=== PATIENT | female | born 1985 | race Hispanic/Latino ===

== ENCOUNTER 2018-10-20 14:24 | Observation (INO) | payer SELFPAY ==
[~2018-10-20] VITALS: Ht 152.4 cm; Wt 81.6 kg
[2018-10-20] MEDS ORDERED: SODIUM CHLORIDE 0.9% 1000ML 1,000 ML IV ONE (15:13)
[2018-10-20 15:19] LABS: BASOPHILS % (AUTO) 0.4 % (0.0-5.0); HEMATOCRIT 39.4 % (36-48); MEAN CORPUSCULAR HEMOGLOBIN 30.4 pg (27.0-33.0); MEAN CORPUSCULAR HGB CONC 34.3 g/dL (32.0-36.0); MEAN CORPUSCULAR VOLUME 88.6 fL (79-99); MONOCYTES % (AUTO) 5.9 % (3.0-13.0); NEUTROPHILS % (AUTO) 75.7 % (40.0-77.0); NUCLEATED RED BLOOD CELLS 0.1 % (0.0-0.19); PLATELET COUNT (AUTO) 244 K/uL (130-400); RED BLOOD CELL COUNT(AUTO) 4.44 MIL/uL (4.00-5.50); RED CELL DISTRIBUTION WIDTH 12.7 % (11.0-15.5); WHITE BLOOD COUNT (AUTO) 11.8 K/uL (4.8-10.8)
[2018-10-20 15:27] LABS: CREATININE 0.6 mg/dL (0.5-1.5); POTASSIUM 3.3 mmol/L (3.5-5.1)
[2018-10-20 15:32] LABS: ALBUMIN 3.8 g/dL (3.5-5.0); BILIRUBIN,TOTAL 0.4 mg/dL (0.2-1.0)
[2018-10-20] MEDS ORDERED: CLOPIDOGREL BISULFATE 300 MG TAB ONE (18:54)
[2018-10-20] MEDS ORDERED: ONDANSETRON HCL 4 MG/2 ML VIAL IV PRN (19:30)
[2018-10-20] MEDS ORDERED: ACETAMINOPHEN 325 MG TAB PO PRN (19:30)
[2018-10-20 23:52] LABS: APPEARANCE,URINE Clear (CLEAR); BILIRUBIN,URINE Negative (NEGATIVE); COLOR,URINE Yellow (YELLOW); GLUCOSE, URINE (UA) Negative (NEGATIVE); KETONES,URINE Trace mg/dL (NEGATIVE); LEUKOCYTE ESTERASE ,URINE Trace (NEGATIVE); NITRATE,URINE Negative (NEGATIVE); OCCULT BLOOD,URINE Negative (NEGATIVE); PH,URINE 6.5 (5.0-8.0); PROTEIN,URINE Negative (NEGATIVE)
[2018-10-20] MEDS: METOPROLOL TARTRATE 25 MG TAB PO SCH (23:56)
[2018-10-20] MEDS: FAMOTIDINE/PF 20 MG/2 ML VIAL IV SCH (23:57)
[2018-10-21] LABS: AMPHET/METH SCREEN,URINE NEGATIVE (NEGATIVE); BARBITURATE SCREEN, URINE NEGATIVE (NEGATIVE); BENZODIAZEPINES SCREEN,URINE NEGATIVE (NEGATIVE); CANNABINOID SCREEN,URINE NEGATIVE (NEGATIVE); COCAINE SCREEN,URINE NEGATIVE (NEGATIVE); OPIATE SCREEN,URINE NEGATIVE (NEGATIVE); PHENCYCLIDINE SCREEN,URINE NEGATIVE (NEGATIVE)
[2018-10-21 00:02] LABS: HCG,QUAL RESULT NEGATIVE (NEGATIVE)
[2018-10-21 00:03] LABS: BACTERIA,URINE None Seen /HPF (None Seen); MUCUS,URINE Rare LPF (None Seen); RBC,URINE None Seen /HPF (0-1); SQUAMOUS EPITHELIAL CELL,UR Moderate /HPF (0-2); WBC,URINE None Seen /HPF (0-1)
[2018-10-21 00:16] VITALS: BP 133/84
[2018-10-21 04:14] LABS: BASOPHILS % (AUTO) 0.7 % (0.0-5.0); EOSINOPHILS % (AUTO) 2.6 % (0.0-8.0); HEMATOCRIT 37.8 % (36-48); LYMPHOCYTES % (AUTO) 24.5 % (21.0-51.0); MEAN CORPUSCULAR HEMOGLOBIN 30.9 pg (27.0-33.0); MEAN CORPUSCULAR HGB CONC 34.4 g/dL (32.0-36.0); MEAN CORPUSCULAR VOLUME 89.6 fL (79-99); MONOCYTES % (AUTO) 7.3 % (3.0-13.0); NEUTROPHILS % (AUTO) 64.9 % (40.0-77.0); PLATELET COUNT (AUTO) 245 K/uL (130-400); RED BLOOD CELL COUNT(AUTO) 4.21 MIL/uL (4.00-5.50); RED CELL DISTRIBUTION WIDTH 12.5 % (11.0-15.5); WHITE BLOOD COUNT (AUTO) 10.2 K/uL (4.8-10.8)
[2018-10-21 04:15] VITALS: BP 119/82
[2018-10-21 04:22] LABS: HEMOGLOBIN A1C 5.5 % (4.0-6.0)
[2018-10-21 04:26] LABS: INR 0.96 (0.85-1.15); PARTIAL THROMBOPLASTIN TIME 30.8 SEC (26.3-35.5); PROTHROMBIN TIME 10.1 SEC (9.6-11.6)
[2018-10-21 04:39] LABS: ALBUMIN 3.1 g/dL (3.5-5.0); BILIRUBIN,TOTAL 0.2 mg/dL (0.2-1.0); CREATININE 0.8 mg/dL (0.5-1.5); POTASSIUM 3.5 mmol/L (3.5-5.1); TOTAL PROTEIN, SERUM 6.9 g/dL (6.0-8.3)
[2018-10-21] MEDS ORDERED: GADODIAMIDE 10 MMOL/20 ML ML IV ONE (07:47)
[2018-10-21 08:24] VITALS: BP 112/67
[2018-10-21] MEDS ORDERED: ASPIRIN 325 MG TABLET PO SCH (09:00)
--- NOTE | 2018-10-21 09:10 | NUR ---
DYSPHAGIA EVAL COMPLETE. SWALLOW FUNCTION AND EFFICIENCY ARE WFL. NO S/S OF ASPIRATION OBSERVED. PATIENT INFORMATION: Pt IS 33 Y.O. FEMALE REFERRED FOR DYSPHAGIA EVALUATION SECONDARY TO DX OF TIA. Pt REPORTED NO DIFFICULTY WITH SWALLOWING, SPEECH, OR LANGUAGE AT ONSET OF TIA SYMPTOMS OR ANY TIME AFTER THAT. Pt WAS AT WORK WHEN SHE BEGAN TO FEEL DIZZY AND HAD DOUBLE VISION. PMHX SIGNIFICANT FOR HTN AND X4. EVALUATION: SWALLOW FUNCTION AND EFFICIENCY ARE WFL. NO S/S OF ASPIRATION OBSERVED. Pt HAS ADEQUATE ORAL STRENGTH AND ROM, TIMELY PHARYNGEAL RESPONSE, GOOD LARYNGEAL ELEVATION/EXCURSION, AND APPROPRIATE AIRWAY PROTECTION. SPEECH, LANGUAGE, AND COGNITION ARE WFL. Pt ABLE TO ANSWER QUESTIONS APPROPRIATELY, EXPRESS WANTS/NEEDS, AND IS ORIENTED X3. RECOMMENDATIONS: 1. REGULAR TEXTURES 2. THIN LIQUIDS 3. MEDICATIONS WHOLE WITH LIQUIDS 4. NO NEED FOR FURTHER MARKETING COMMUNICATIONS ASSISTANT INTERVENTION IDENTIFIED. PLEASE RE-CONSULT IF CONCERNS ARISE. Addendum: 10/21/18 at 1003 by RIRI JASON Amended: Links added.
--- NOTE | 2018-10-21 09:20 | NUR ---
CM CHART REVIEWED, PT IN OBS STATUS PENDING IMAGING REPORTS, WILL FOLLOW UP LATER
[2018-10-21] MEDS: FAMOTIDINE/PF 20 MG/2 ML VIAL IV SCH ×2 (09:39→21:29)
[2018-10-21] MEDS: LISINOPRIL 10 MG TABLET PO SCH (09:39)
[2018-10-21 11:51] VITALS: BP 123/79
[2018-10-21 16:36] VITALS: BP 124/78
--- NOTE | 2018-10-21 18:50 | NUR ---
MEDICATED PATIENT WITH ZOFRAN AND TYLENOL FOR HEADACHE AND NAUSEA. PATIENT C/O CHILLS, BACK PAIN. VS STABLE.WILL CONTINUE TO MONITOR.
[2018-10-21 19:05] VITALS: BP 120/83
[2018-10-21] MEDS: TOPIRAMATE 25 MG TABLET PO SCH (21:30)
[2018-10-21] MEDS: METOPROLOL TARTRATE 25 MG TAB PO SCH (21:30)
[2018-10-21] MEDS: FOLIC ACID 1 MG TABLET PO SCH (21:30)
[2018-10-22 00:15] VITALS: BP 118/77
[2018-10-22 04:12] VITALS: BP 113/60
[2018-10-22] MEDS ORDERED: TOPI25TA42 PO (07:25)
[2018-10-22 08:00] VITALS: BP 117/69
[2018-10-22] MEDS: FOLIC ACID 1 MG TABLET PO SCH (08:21)
[2018-10-22] MEDS: FAMOTIDINE/PF 20 MG/2 ML VIAL IV SCH (08:21)
[2018-10-22] MEDS: TOPIRAMATE 25 MG TABLET PO SCH (08:21)
[2018-10-22] MEDS: LISINOPRIL 10 MG TABLET PO SCH (08:22)
[2018-10-22] MEDS ORDERED: ASPIRIN 325 MG TABLET PO SCH (09:00)
[2018-10-22] MEDS ORDERED: ATORVASTATIN CALCIUM 20 MG TABLET PO SCH (09:00)
== END 2018-10-22 11:38 | disposition home or self-care (01) ==
LOC: EDH 14:24 → EDHIP 14:25 → 3AH 21:54
PROVIDERS: ADMIT Internal Medicine; ATTEND Internal Medicine
DX: G45.9 Transient cerebral ischemic attack, unspecified (principal); I10 Essential (primary) hypertension; N95.1 Menopausal and female climacteric states; H53.2 Diplopia; Z98.51 Tubal ligation status
CPT/HCPCS: 36415 ×2; 70450; 70544; 70547; 70553; 80053 ×2; 80061; 80305; 81001; 81025; 83036; 84484 ×2; 85025 ×2; 85610; 85730; 92610; 93005; 96374; 96376 ×2; 97161; 99291; A9579; G0378 ×45; G8978; G8979; G8980; G8981; G8982; G8983; J3490 ×4; J7030

== ENCOUNTER 2022-11-24 12:11 | Emergency (ER) | payer OTHER ==
[~2022-11-24] VITALS: Ht 152.4 cm; Wt 90.3 kg
[~2022-11-24 12:11] MED LIST: TOPI25TA42 PO
[2022-11-24 14:06] LABS: BASOPHILS % (AUTO) 0.6 % (0.0-5.0); HEMATOCRIT 43.1 % (36-48); LYMPHOCYTES % (AUTO) 25.9 % (21.0-51.0); MEAN CORPUSCULAR HEMOGLOBIN 30.4 pg (27.0-33.0); MEAN CORPUSCULAR HGB CONC 33.9 g/dL (32.0-36.0); MEAN CORPUSCULAR VOLUME 89.6 fL (79-99); MONOCYTES % (AUTO) 5.4 % (3.0-13.0); NEUTROPHILS % (AUTO) 65.9 % (40.0-77.0); PLATELET COUNT (AUTO) 287 K/uL (130-400); RED BLOOD CELL COUNT(AUTO) 4.81 MIL/uL (4.00-5.50); RED CELL DISTRIBUTION WIDTH 12.9 % (11.0-15.5); WHITE BLOOD COUNT (AUTO) 8.9 K/uL (4.8-10.8)
[2022-11-24 14:17] LABS: CREATININE 0.8 mg/dL (0.5-1.5); POTASSIUM 3.8 mmol/L (3.5-5.1)
[2022-11-24 14:22] LABS: ALBUMIN 3.8 g/dL (3.5-5.0); TOTAL PROTEIN, SERUM 7.8 g/dL (6.0-8.3)
[2022-11-24 14:54] LABS: APPEARANCE,URINE CLEAR (CLEAR); BILIRUBIN,URINE NEGATIVE (NEGATIVE); COLOR,URINE COLORLESS (YELLOW); GLUCOSE, URINE (UA) NEGATIVE (NEGATIVE); KETONES,URINE NEGATIVE (NEGATIVE); LEUKOCYTE ESTERASE ,URINE NEGATIVE Leu/uL (NEGATIVE); NITRATE,URINE NEGATIVE (NEGATIVE); OCCULT BLOOD,URINE NEGATIVE (NEGATIVE); PH,URINE 5.5 (5.0-8.0); PROTEIN,URINE NEGATIVE (NEGATIVE); UROBILINOGEN,URINE 0.2 mg/dL (0.2-1.0)
[2022-11-24 14:56] LABS: HCG,QUALITATIVE URINE NEGATIVE (NEGATIVE)
[2022-11-24] MEDS ORDERED: FAMOTIDINE 20MG TAB PO ONE (15:30)
[2022-11-24] MEDS ORDERED: MAG/ALUM/SIMETH 30 ML UDCUP PO ONE (15:30)
[2022-11-24] MEDS ORDERED: LIDOCAINE HCL 2% VISCOUS 15 ML UDCUP PO ONE (15:30)
[2022-11-24] MEDS ORDERED: CEPH500B PO (17:05)
[2022-11-24] MEDS ORDERED: FAMO-136 PO (17:05)
[2022-11-24] MEDS ORDERED: ACET-66 PO (17:05)
[2022-11-24] MEDS ORDERED: HYDRALAZINE 20MG/ML VIAL IV ONE (17:30)
[2022-11-24] MEDS ORDERED: 0.9%NACL 1000ML 1,000 ML IV ONE (17:30)
[2022-11-24 18:14] VITALS: BP 147/81
== END 2022-11-24 19:01 | disposition home or self-care (01) ==
LOC: EDH 12:11
DX: R10.12 Left upper quadrant pain (principal); I10 Essential (primary) hypertension; Z88.6 Allergy status to analgesic agent; Z79.899 Other long term (current) drug therapy
CPT/HCPCS: 99285; 74176; 96374; 96361; 80053; 83690; 85025; 81003; 81025; 36415; J7030; J0360

== ENCOUNTER 2022-11-30 11:59 | Emergency (ER) | payer OTHER ==
[~2022-11-30] VITALS: Ht 152.4 cm; Wt 89.8 kg
[~2022-11-30 11:59] MED LIST changes: +ACET-66 PO; +CEPH500B PO; +FAMO-136 PO
[2022-11-30] MEDS ORDERED: MAG/ALUM/SIMETH 30 ML UDCUP PO ONE (13:30)
[2022-11-30] MEDS ORDERED: LIDOCAINE HCL 2% VISCOUS 15 ML UDCUP PO ONE (13:30)
[2022-11-30 13:37] LABS: APPEARANCE,URINE CLEAR (CLEAR); BILIRUBIN,URINE NEGATIVE (NEGATIVE); COLOR,URINE COLORLESS (YELLOW); GLUCOSE, URINE (UA) NEGATIVE (NEGATIVE); KETONES,URINE NEGATIVE (NEGATIVE); LEUKOCYTE ESTERASE ,URINE NEGATIVE Leu/uL (NEGATIVE); NITRATE,URINE NEGATIVE (NEGATIVE); OCCULT BLOOD,URINE NEGATIVE (NEGATIVE); PH,URINE 6.5 (5.0-8.0); PROTEIN,URINE NEGATIVE (NEGATIVE); UROBILINOGEN,URINE 0.2 mg/dL (0.2-1.0)
[2022-11-30 13:44] LABS: BASOPHILS % (AUTO) 0.9 % (0.0-5.0); EOSINOPHILS % (AUTO) 2.3 % (0.0-8.0); LYMPHOCYTES % (AUTO) 24.2 % (21.0-51.0); MEAN CORPUSCULAR HEMOGLOBIN 30.5 pg (27.0-33.0); MEAN CORPUSCULAR HGB CONC 33.8 g/dL (32.0-36.0); MEAN CORPUSCULAR VOLUME 90.1 fL (79-99); MONOCYTES % (AUTO) 5.6 % (3.0-13.0); NEUTROPHILS % (AUTO) 66.7 % (40.0-77.0); PLATELET COUNT (AUTO) 255 K/uL (130-400); RED BLOOD CELL COUNT(AUTO) 4.66 MIL/uL (4.00-5.50); RED CELL DISTRIBUTION WIDTH 12.8 % (11.0-15.5); WHITE BLOOD COUNT (AUTO) 7.5 K/uL (4.8-10.8)
[2022-11-30 13:56] LABS: CREATININE 0.7 mg/dL (0.5-1.5); POTASSIUM 3.9 mmol/L (3.5-5.1)
[2022-11-30 14:08] LABS: AMPHET/METH SCREEN,URINE NEGATIVE (NEGATIVE); BARBITURATE SCREEN, URINE NEGATIVE (NEGATIVE); BENZODIAZEPINES SCREEN,URINE NEGATIVE (NEGATIVE); CANNABINOID SCREEN,URINE NEGATIVE (NEGATIVE); COCAINE SCREEN,URINE NEGATIVE (NEGATIVE); OPIATE SCREEN,URINE NEGATIVE (NEGATIVE); PHENCYCLIDINE SCREEN,URINE NEGATIVE (NEGATIVE)
[2022-11-30 14:10] LABS: ALBUMIN 3.8 g/dL (3.5-5.0); TOTAL PROTEIN, SERUM 7.4 g/dL (6.0-8.3)
[2022-11-30] MEDS ORDERED: IOHEXOL 350 MG/ML 100ML INFUS..BTL IV ONE (15:16)
[2022-11-30] MEDS ORDERED: LACT10SO5 PO (16:36)
[2022-11-30 16:46] VITALS: BP 161/89
== END 2022-11-30 17:23 | disposition home or self-care (01) ==
LOC: EDH 11:59
DX: K59.00 Constipation, unspecified (principal); I10 Essential (primary) hypertension; F32.A Depression, unspecified; F42.9 Obsessive-compulsive disorder, unspecified; Z88.6 Allergy status to analgesic agent; Z98.890 Other specified postprocedural states; Z79.899 Other long term (current) drug therapy
CPT/HCPCS: 99285; 74177; 84484; 80053; 80305; 83690; 85025; 81025; 36415; 81003; Q9967